=== PATIENT | male | born 1965 | race Caucasian/White ===

== ENCOUNTER 2016-06-13 11:44 | Emergency (ER) | payer OTHER ==
[~2016-06-13] VITALS: Ht 180.3 cm; Wt 77.0 kg
[~2016-06-13 11:44] MED LIST: 1-ME1LIQ PO; AMLO10TA2 PO; ASPI325T PO; BUSP10TA PO; CYMB60CA PO; HYDR-2768 PO; HYDR25TA5 PO; LISI-593 PO; LISI40TA PO; LOPR50TA12 PO; SERO400T PO; TRAZ100 PO
[2016-06-13 11:53] VITALS: BP 122/92; PULSE 76; RESP 16; TEMP 98.1; O2SAT 94
[2016-06-13] MEDS ORDERED: SODIUM CHLORIDE 0.9% FLUSH 10 ML FLUSH IVF PRN (12:00)
[2016-06-13] MEDS ORDERED: BUSP30TA PO (12:02)
[2016-06-13] MEDS ORDERED: SERO400T PO (12:02)
[2016-06-13] MEDS ORDERED: TRAZ100T4 PO (12:02)
[2016-06-13 12:05] VITALS: O2SAT 96
[2016-06-13 12:10] VITALS: BP 122/92; PULSE 77; RESP 16; O2SAT 97
--- NOTE | 2016-06-13 12:21 | RADRPT ---
EXAM DATE/TIME: 06/13/2016 11:58 [facility] COMPARISON: No previous studies available for comparison. INDICATIONS : Syncope. Feeling weak. MEDICAL HISTORY : None. SURGICAL HISTORY : None. ENCOUNTER: Initial ACUITY: 1 day PAIN SCORE: 0/10 LOCATION: Bilateral chest FINDINGS: A single view of the chest demonstrates the lungs to be symmetrically aerated without evidence of mas s, infiltrate or effusion. The cardiomediastinal contours are unremarkable. Osseous structures are intact. CONCLUSION: No acute disease. Sulaiman Clemons MD FACR on June 13, 2016 at 12:19 Board Certified Radiologist. This report was verified electronically.
[2016-06-13 12:32] LABS: AUTOMATED NEUTROPHIL # 4.5 TH/MM3 (1.8-7.7); BASOPHIL # 0.1 TH/MM3 (0-0.2); BASOPHIL % 1.5 % (0.0-2.0); EOSINOPHIL # 0.1 TH/MM3 (0-0.4); HEMATOCRIT 37.3 % (39.0-51.0); LYMPH % 23.4 % (9.0-44.0); LYMPHOCYTE # 1.7 TH/MM3 (1.0-4.8); MEAN CELL VOLUME 105.8 FL (80.0-100.0); MEAN CORPUSCULAR HEMOGLOBIN 36.8 PG (27.0-34.0); MEAN CORPUSCULAR HGB CONC 34.8 % (32.0-36.0); MONO % 11.7 % (0.0-8.0); NEUT % 61.4 % (16.0-70.0); PLATELET COUNT 218 TH/MM3 (150-450); RED BLOOD COUNT 3.53 MIL/MM3 (4.50-5.90); RED CELL DISTRIBUTION WIDTH 15.9 % (11.6-17.2); WHITE BLOOD COUNT 7.4 TH/MM3 (4.0-11.0)
[2016-06-13 12:33] LABS: HEMO FLAGS AUTO DIFF
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
[2016-06-13 12:41] LABS: APTT (PATIENT) 25.8 SEC (24.3-30.1); INTERNATIONAL NORMALIZED RATIO 0.9 RATIO; PROTHROMBIN TIME - PATIENT 9.9 SEC (9.8-11.6)
[2016-06-13 13:02] LABS: ALKALINE PHOSPHATASE 81 U/L (45-117); BANDS 2 % (0-6); BASOPHILS 1 % (0-2); CREATINE KINASE 181 U/L (39-308); NEUTROPHIL # MANUAL DIFF 4.4 TH/MM3 (1.8-7.7); POLYS (SEG NEUTROPHILS) 58 % (16-70); TARGET CELLS 1+ (NORMAL); TOTAL BILIRUBIN ADULT 0.2 MG/DL (0.2-1.0); WBC DIFF SAMPLE 100
[2016-06-13 13:03] LABS: ACETAMINOPHEN LESS THAN 2.0 MCG/ML (10.0-30.0); ALT (GPT) 31 U/L (12-78); ANION GAP 8 MEQ/L (5-15); AST (GOT) 42 U/L (15-37); BICARBONATE 29.8 MEQ/L (21.0-32.0); BLOOD UREA NITROGEN 7 MG/DL (7-18); CHLORIDE 109 MEQ/L (98-107); GLOMERULAR FILTRATION RATE 72 ML/MIN (>89); PLATELET ESTIMATE SMEAR NORMAL (NORMAL); PLATELET MORPHOLOGY NORMAL (NORMAL); POTASSIUM 3.6 MEQ/L (3.5-5.1); SCAN/DIFF FINAL DIFF MANUAL; SODIUM (NA) 147 MEQ/L (136-145)
[2016-06-13 13:12] VITALS: BP 116/63; PULSE 72; RESP 16; O2SAT 96
--- NOTE | 2016-06-13 13:23 | RADRPT ---
EXAM DATE/TIME: 06/13/2016 12:44 [facility] COMPARISON: CT BRAIN W/O CONTRAST, February 19, 2013, 1:11. INDICATIONS : Syncope today. RADIATION DOSE: 56.35 CTDIvol (mGy) MEDICAL HISTORY : Seizures. Hypertension. SURGICAL HISTORY : None. ENCOUNTER: Initial ACUITY: 1 day PAIN SCALE: 3/10 LOCATION: Bilateral head TECHNIQUE: Multiple contiguous axial images were obtained of the head. Using automated exposure control and adjustment of the mA and/or kV according to patient size, radiation dose was kept as low as reasonably achievable to obtain optimal diagnostic quality images. FINDINGS: CEREBRUM: The ventricles are normal for age. No evidence of midline shift, mass lesion, hemorrha ge or acute infarction. No extra-axial fluid collections are seen. POSTERIOR FOSSA: The cerebellum and brainstem are intact. The 4th ventricle is midline. The cer ebellopontine angle is unremarkable. EXTRACRANIAL: The visualized portion of the orbits is intact. SKULL: The calvaria is intact. No evidence of skull fracture. CONCLUSION: Negative for an acute process. Sulaiman Clemons MD FACR on June 13, 2016 at 13:20 Board Certified Radiologist. This report was verified electronically.
--- NOTE | 2016-06-14 11:22 | EKG ---
Date Performed: 06/13/2016 Time Performed: 12:07:49 PTAGE: 50 years EKG: Sinus rhythm PROLONGED QT INTERVAL ABNORMAL ECG PREVIOUS TRACING : 09/07/2014 18.09 DOCTOR: Amilcar Mccormick Interpretating Date/Time 06/14/2016 11:20:38
[2016-07-05] MEDS ORDERED: TAMS5CAP PO (10:20)
[2016-07-12] MEDS ORDERED: HYDR25TA5 PO (09:14)
[2016-07-14] MEDS ORDERED: LISI40TA PO (08:21)
[2016-07-15] MEDS ORDERED: METO50TA PO ×2 (15:38→15:39)
[2016-09-09] MEDS ORDERED: LISI40TA PO (19:06)
== END 2016-06-13 13:49 | disposition left against medical advice (07) ==
LOC: NEPC 11:44
DX: R41.82 Altered mental status, unspecified (principal); F10.129 Alcohol abuse with intoxication, unspecified; I10 Essential (primary) hypertension; I45.81 Long QT syndrome; F17.210 Nicotine dependence, cigarettes, uncomplicated
CPT/HCPCS: 70450; 71010; 80053; 80307; 82140; 82550; 84443; 84484; 85007; 85027; 85610; 85730; 93005

== ENCOUNTER 2016-11-29 20:52 | Emergency (ER) | payer OTHER ==
[~2016-11-29 20:52] MED LIST changes: -1-ME1LIQ PO; -ASPI325T PO; -BUSP10TA PO; +BUSP30TA PO; -CYMB60CA PO; -HYDR-2768 PO; -LISI-593 PO; -LOPR50TA12 PO; +METO50TA PO; +TAMS5CAP PO; -TRAZ100 PO; +TRAZ100T4 PO
[2016-11-29 20:53] VITALS: BP 166/107; PULSE 91; RESP 15; TEMP 98.5; O2SAT 96
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
[2016-12-28] MEDS ORDERED: BUPR100T4 PO (14:36)
[2016-12-28] MEDS ORDERED: TRAZ100T6 PO (14:37)
[2016-12-28] MEDS ORDERED: TAMS5CAP PO (14:44)
[2016-12-28] MEDS ORDERED: HYDR25TA5 PO (14:44)
[2016-12-28] MEDS ORDERED: LISI40TA PO (14:44)
[2016-12-28] MEDS ORDERED: AMLO10TA2 PO (14:44)
== END 2016-11-29 23:55 | disposition home or self-care (01) ==
LOC: NEPD 20:52
DX: T18.5XXA Foreign body in anus and rectum, initial encounter (principal)
CPT/HCPCS: 99284

== ENCOUNTER → 2016-12-23 | Outpatient (CLI) | payer OTHER ==
[~2016-12-23] MED LIST changes: +BUPR100T4 PO; +TRAZ100T6 PO
[2016-12-23 10:23] LABS: AUTOMATED NEUTROPHIL # 1.5 TH/MM3 (1.8-7.7); BASOPHIL # 0.1 TH/MM3 (0-0.2); BASOPHIL % 2.8 % (0.0-2.0); EOSINOPHIL # 0.2 TH/MM3 (0-0.4); EOSINOPHIL % 3.9 % (0.0-4.0); HEMATOCRIT 38.8 % (39.0-51.0); HEMO FLAGS DIFF FINAL; LYMPH % 47.4 % (9.0-44.0); LYMPHOCYTE # 2.2 TH/MM3 (1.0-4.8); MEAN CELL VOLUME 105.7 FL (80.0-100.0); MEAN CORPUSCULAR HEMOGLOBIN 36.5 PG (27.0-34.0); MEAN CORPUSCULAR HGB CONC 34.5 % (32.0-36.0); MONO % 13.4 % (0.0-8.0); NEUT % 32.5 % (16.0-70.0); PLATELET COUNT 240 TH/MM3 (150-450); RED BLOOD COUNT 3.67 MIL/MM3 (4.50-5.90); RED CELL DISTRIBUTION WIDTH 17.8 % (11.6-17.2); WHITE BLOOD COUNT 4.7 TH/MM3 (4.0-11.0)
[2016-12-23 11:08] LABS: ANION GAP 9 MEQ/L (5-15); BICARBONATE 24.5 MEQ/L (21.0-32.0); BLOOD UREA NITROGEN 12 MG/DL (7-18); CHLORIDE 109 MEQ/L (98-107); GLOMERULAR FILTRATION RATE 92 ML/MIN (>89); GLUCOSE,FASTING 89 MG/DL (74-99); POTASSIUM 3.4 MEQ/L (3.5-5.1); SODIUM (NA) 142 MEQ/L (136-145)
[2016-12-23 11:10] LABS: AST (GOT) 97 U/L (15-37)
[2016-12-23 11:21] LABS: ALKALINE PHOSPHATASE 108 U/L (45-117); ALT (GPT) 114 U/L (12-78); HDL CHOLESTEROL 109.9 MG/DL (40.0-60.0); LDL CHOLESTEROL 59 MG/DL (0-99); TOTAL BILIRUBIN ADULT 0.2 MG/DL (0.2-1.0)
== END ==
LOC: CLAB 09:54
PROVIDERS: ATTEND Family Medicine
DX: F41.9 Anxiety disorder, unspecified (principal); D69.6 Thrombocytopenia, unspecified; I10 Essential (primary) hypertension; E78.5 Hyperlipidemia, unspecified; F10.10 Alcohol abuse, uncomplicated; R35.1 Nocturia; Z72.0 Tobacco use
CPT/HCPCS: 36415; 80053; 80061; 84153; 84443; 85025